=== PATIENT | male | born 1955 | race Caucasian/White ===

== ENCOUNTER 2017-02-07 13:29 | Emergency (ER) | payer BC ==
[2017-02-07 13:42] VITALS: PULSE 70
--- NOTE | 2017-02-07 14:52 | EDPHY ---
General Narrative: CHIEF COMPLAINT: Fall, knee laceration HISTORY OF PRESENT ILLNESS: Patient presents with complaints of left knee laceration. He was hiking at [facility] this morning when he tripped, landing on his left knee. He was wearing long pants but sustained a laceration underneath the pants. There was no tear to the pants. Minimal pain. He was able to hike out is. No numbness or tingling distally. 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 No change in the status. Minimal pain when ambulating. No pain at rest. Tetanus status is up-to-date less than 3 years. No other associated complaints or modifying factors. TIME OF INJURY: Less than 3 hours prior to arrival TETANUS STATUS: Less than 3 years ago MEDICAL/SURGICAL/SOCIAL HISTORY: Left lower extremity complications from polio REVIEW OF SYSTEMS: Ten systems reviewed and are negative unless otherwise noted in the HPI EXAMINATION General Appearance: Alert, no distress Head: normocephalic, atraumatic Cardiovascular: Pulses normal throughout. Symmetric DP and PT pulses 2+. Brisk cap refill Neurological: A&O, sensory symmetric, strength symmetric Skin: Warm and dry, no rash. For 5cm laceration of the left anterior knee over the patella. Neuro intact distally. Extremities: Tenderness of the left knee laceration. Full flexion extension of the left knee without deficit. No exposure of the patella or patellar tendon. Neuro intact distally. DIFFERENTIAL DIAGNOSES: Including but not limited to complex knee laceration, patellar fracture, MDM: 2:09 p.m. Mechanical fall with significant left knee laceration. Patellar tendon is intact. He does have some tenderness over the patella, thus I have ordered an x -ray. Tetanus up-to-date. The wound has been anesthetized. Proceed with x-ray , irrigation closure. No injury elsewhere. 3:20 p.m. X-rays negative for fracture, dislocation or foreign body. Laceration has been repaired with horizontal mattress with excellent approximation. He is neurovascular intact. We discussed daily wound care. We discussed light activity. We discussed returning to the ED for suture removal at 10-14 days. We also discussed ED precautions. He is comfortable this plan. He is ambulatory without assistance. Distal velasquez. PROCEDURE: Laceration repair Consent: Verbal Location: Left knee, prepatellar Length of repair: 5 cm Complexity: Complex Layer involvement: 2 layer Anesthesia: Local. 1% lidocaine with epinephrine. 7 mL Irrigation: Extensive Debridement: None Procedure description: Following good anesthesia, the wound was copiously irrigated. Wound bed was explored and there is no foreign body noted. No compromise of the fascia overlying the patellar tendon Wound borders were approximated well with good hemostasis. Tolerated well without complication. Suture/Staple material: Cutaneous layer: 4-0 Prolene, 8 horizontal mattresses. Subcutaneous layer: 5-0 Vicryl, 6 simple interrupted sutures Wound care: Routine as discussed Suture/Staple removal: 10-14 Days ED Precautions: Worsening pain. Erythema, edema, cyanosis, pallor, paresthesia or anesthesia. - History Smoking Status: Never smoked - Objective Vital Signs: Initial Vital Signs Temperature (C) 97.7 F 02/07/17 13:39 Heart Rate 70 02/07/17 13:39 Respiratory Rate 17 02/07/17 13:39 Blood Pressure 129/90 H 02/07/17 13:39 O2 Sat (%) 96 02/07/17 13:39 O2 Delivery Mode Room Air Allergies/Adverse Reactions: No Known Allergies Allergy (Verified 02/07/17 13:38) Home Medications: Medication Instructions Recorded Etanercept [Enbrel] 50 mg SQ WE@11/21/13 Methotrexate Sodium [Methotrexate] 10 mg PO WE@11/21/13 Aspirin [Aspirin 81mg (*)] 81 mg PO DAILY #0 tab 11/22/13 Cephalexin [Keflex (*)] 500 mg PO TID #30 cap 02/07/17 Departure - Departure Disposition: Home, Routine, Self-Care Clinical Impression: Laceration of knee, complicated Qualifiers: Encounter type: initial encounter Laterality: left Qualified Code(s): S81.012A - Laceration without foreign body, left knee, initial encounter Condition: Good Instructions: Care For Your Stitches (ED), Laceration (ED) Additional Instructions: 1. Daily wound care as discussed 2. Light activity as discussed 3. Return to ED in 10-14 days for suture removal 4. ED precautions as discussed Referrals: Michael Sabillon MD [Primary Care Provider] - As per Instructions Prescriptions: Cephalexin [Keflex (*)] 500 mg PO TID #30 cap
[2017-02-07 15:34] VITALS: BP 138/78; RESP 14; TEMP 97.2; O2SAT 97
== END 2017-02-07 15:34 | disposition home or self-care (01) ==
PROC: 0HQLXZZ Repair Left Lower Leg Skin, External Approach (ICD-10-PCS; principal; 2017-02-07)
DX: S81.012A Laceration without foreign body, left knee, initial encounter (principal); W01.0XXA Fall on same level from slipping, tripping and stumbling without subsequent striking against object, initial encounter; Y92.89 Other specified places as the place of occurrence of the external cause; Y99.8 Other external cause status; Y93.01 Activity, walking, marching and hiking

== ENCOUNTER → 2017-03-25 | Outpatient (CLI) | payer BC ==
[~2017-03-25] MED LIST: IOPAMIDOL (ISOVUE 370) 100 ML BTL IV ONE
== END ==
LOC: FIMAGING 07:43
PROVIDERS: ATTEND Internal Medicine Cardiovascular Disease
DX: J84.10 Pulmonary fibrosis, unspecified (principal)
CPT/HCPCS: Q9967

== ENCOUNTER 2017-03-26 10:40 | Day surgery (SDC) | payer BC ==
[2017-03-26] MEDS ORDERED: NS 1,000 ML IV ONE (10:43)
--- NOTE | 2017-03-26 11:10 | CPEKG ---
Heart Rate: 62 RR Interval: 968 P-R Interval: 184 QRSD Interval: 86 QT Interval: 412 QTC Interval: 419 P [place]: 60 QRS [place]: 33 T Wave [place]: 14 EKG Severity - NORMAL ECG - EKG Impression: SINUS RHYTHM Electronically Signed By: Tavo Pacheco 26-Mar-2017 14:41:14
== END 2017-03-26 11:33 | disposition home or self-care (01) ==
LOC: FCATH 10:40
PROVIDERS: ATTEND Internal Medicine Cardiovascular Disease
DX: I48.91 Unspecified atrial fibrillation (principal); Z53.9 Procedure and treatment not carried out, unspecified reason

== ENCOUNTER 2017-04-02 06:45 | Observation (INO) | payer BC ==
[2017-04-02] MEDS ORDERED: NS 1,000 ML IV ONE (06:49)
[2017-04-02 07:17] LABS: PLATELET COUNT 199 10^3/uL (150-400)
[2017-04-02 07:26] LABS: INR 0.98 (0.83-1.16); PROTIME(PATIENT) 13.2 SEC (12.0-15.0)
[2017-04-02] MEDS ORDERED: HEPARIN 10,000 UNIT/10 ML MDV (1,000 UNIT/ML) ONE (07:57)
[2017-04-02] MEDS ORDERED: LIDOCAINE 1% 300 MG/30 ML SDV ONE (07:57)
[2017-04-02] MEDS ORDERED: HEPARIN/DEXTROSE 25,000 UNIT/500 ML BAG ONE (07:57)
[2017-04-02] MEDS ORDERED: BUPIVACAINE 0.5% 30 ML SDV ONE (07:57)
[2017-04-02] MEDS ORDERED: ROCURONIUM 50 MG/5 ML VIAL ONE ×2 (08:08→10:11)
[2017-04-02] MEDS ORDERED: PROPOFOL 200 MG/20 ML VIAL ONE (08:08)
[2017-04-02] MEDS ORDERED: fentaNYL 100 MCG/2 ML INJ ONE (08:08)
[2017-04-02] MEDS ORDERED: PHENYLEPHRINE HCL 100 MCG/ML SYR ONE ×2 (08:11→11:31)
--- NOTE | 2017-04-02 09:03 | PDGENHP ---
History & Physical Chief Complaint: AFIB, symptomatic History of Present Illness: AFIB Relevant Physical Exam: s1s2 irreg. cta. aox3 Cardiorespiratory Assessment: Prior CB ablation 2 y ago. Recurrent symptomatic AFIB for ablation. D/w patient and that we will reisolate PV if necessary , perform AFL ablation if necessary, ablate other triggers
[2017-04-02] MEDS ORDERED: IOPAMIDOL (ISOVUE-300) 100 ML BTL ONE (09:18)
--- NOTE | 2017-04-02 09:29 | CPEKG ---
Heart Rate: 64 RR Interval: 938 QRSD Interval: 82 QT Interval: 388 QTC Interval: 401 QRS [place]: 38 T Wave [place]: 0 EKG Severity - ABNORMAL ECG - EKG Impression: ATRIAL FIBRILLATION, V-RATE 55-75 Electronically Signed By: Pako Ortiz 02-Apr-2017 12:38:56
[2017-04-02] MEDS ORDERED: MIDAZOLAM 2 MG/2 ML VIAL ONE (09:31)
[2017-04-02] MEDS ORDERED: ONDANSETRON 4 MG/2 ML VIAL ONE (11:48)
[2017-04-02] MEDS ORDERED: DEXAMETHASONE 4 MG/ML VIAL ONE ×2 (11:48)
[2017-04-02] MEDS ORDERED: SUGAMMADEX SODIUM 200 MG/2 ML VIAL IVP ONE (11:48)
--- NOTE | 2017-04-02 12:37 | EPPROC ---
Electrophysiology Procedure Note: ELECTROPHYSIOLOGIC STUDY AND CATHETER MEDIATED ABLATION FOR paroxysmal ATRIAL FIBRILLATION Procedures performed: 73629-21 EP evaluation with RA/RV/LA pace/record, with arrhythmia induction 15286-38 EP evaluation with RA/RV pace record, insert/reposition catheter, with arrhythmia induction 21334 Atrial fibrillation ablation 86763 3D mapping Intracardiac echocardiogram Fluoroscopy INDICATION: Paroxsymal atrial fibrillation Prior CB ablation in 2014 at our institution PROCEDURE: The patient arrived in the Electrophysiology Laboratory in the fasting state. The right groin, left groin and right infraclavicular area were prepped and draped in the usual sterile fashion. Anesthesiologist administered general anesthesia Dr. Jignesh Dickerson . All catheters were placed percutaneously using the Seldinger technique and advanced into position under fluoroscopic guidance. One #7 Angolan deflectable octapolar electrode catheter was placed in the His-bundle position via the left femoral vein (2mm spacing, IVC electrode for unipolar recordings). This catheter was placed in the coronary sinus after transseptal puncture. One #8 Angolan AcuNaV ultrasound catheter was placed in the left femoral vein and advanced into the right atrium. One #4 Angolan sheath was inserted into the left femoral artery via percutaneous technique and used for continuous arterial blood pressure monitoring and intermittent ACT determination. Programmed stimulation was performed from the right atrium, left atrium (CS) and right ventricle. There was no evidence of AV accessory pathway. Pt arrived to lab in AFIB, he converted to sinus rhythm with anesthesia induction. TOYA was attempted but probe could not be passed easily and therefore was not completed. Intracardiac echo evaluation of the left atrium and pulmonary veins was performed. Anatomy left common vein, RSPV, RIPV. Baseline ACT was drawn and heparin bolus was administered and heparin drip was started prior to transseptal puncture. ACT was checked every 15 minutes and maintained in the range of 350-400 seconds. One SL1 sheath was placed in the LA via a PFO. Pentaray and 3.5 mm STSF irrigated Carto ablation catheters were placed sequentially. A high-resolution electroanatomical map of the left atrium and pulmonary veins was obtained during sinus rhythm. CT angiography of the pulmonary veins and left atrium obtained previously was used in the CARTO-MERGE system for guidance in placing the catheter. Intracardiac ultrasound was used to assist in placing the mapping catheter outside the antrum of the pulmonary veins. An esophageal temperature probe (12 electrode, Circa) was placed by the anesthesiologist at the beginning of the procedure. Esophageal temperature was monitored continuously and RF ablation was interrupted if there was a temperature rise >0.5 C. The esophagus was closer to the LCV. The antrum of the left pulmonary veins was then isolated by radiofrequency applications (power 20-25 W). The antrum of the right pulmonary veins was then isolated by radiofrequency applications (power 20-25 W). Bidirectional ( entrance and exit) conduction block was confirmed. Ablation needed to be performed anterior to LCV, inferior to LCV and at LCV roof. Ablation needed to be performed anterior to RSPV and anterior to RIPV and 1 location posteriorly. Total ablation time 58 min 24 seconds. ICE imaging was consistent with pre ablation imaging; moreover it showed no pericardial effusion or LA/TAINA thrombus at the end of the procedure. The catheters were withdrawn. Protamine was given. Venous sheaths were removed in EP lab after pursestring suture was applied on both sides. Arterial sheath was left in place. The patient was recovered from anesthesia. There were no complications. CONCLUSIONS: 1. Paroxysmal atrial fibrillation. 2. Successful pulmonary vein re-isolation procedure (left and right pulmonary vein antrum) 3. No apparent complications. Patient Problems: Problems Problem Status Onset Atrial fibrillation Acute Chest pain Acute
--- NOTE | 2017-04-02 13:31 | CPEKG ---
Heart Rate: 64 RR Interval: 938 P-R Interval: 176 QRSD Interval: 84 QT Interval: 416 QTC Interval: 430 P [place]: 5 QRS [place]: 37 T Wave [place]: 1 EKG Severity - NORMAL ECG - EKG Impression: SINUS RHYTHM Electronically Signed By: Pako Ortiz 02-Apr-2017 15:00:21
[2017-04-02] MEDS: ENOXAPARIN 80 MG/0.8 ML SYR SC SCH (17:24)
[2017-04-03] MEDS: ENOXAPARIN 80 MG/0.8 ML SYR SC SCH (04:57)
[2017-04-03 05:09] LABS: PLATELET COUNT 205 10^3/uL (150-400)
[2017-04-03 05:40] LABS: CREATINE KINASE 145 IU/L (0-224)
--- NOTE | 2017-04-03 08:44 | CPEKG ---
Heart Rate: 77 RR Interval: 779 P-R Interval: 160 QRSD Interval: 82 QT Interval: 372 QTC Interval: 421 P [place]: 8 QRS [place]: 30 T Wave [place]: 8 EKG Severity - NORMAL ECG - EKG Impression: SINUS RHYTHM Electronically Signed By: Pako Ortiz 03-Apr-2017 08:51:45
--- NOTE | 2017-04-03 09:19 | ECHO ---
[email or web address] [address] [address] Main: [phone] Fax: Transthoracic Echocardiogram Name: HAY EDWARDS MR#: [id number] Study Date: 04/03/2017 Study Time: 07:42 AM Date of : 1955 Age: 61 year(s) Height: 182.9 cm (72 in.) Weight: 79.38 kg (175 lb.) BSA: 2.01 m2 Gender: Male Examination: Echo Indication: Post Ablation Image Quality: Contrast: Requested by: Pako Ortiz BP: 167 mmHg/97 mmHg Heart Rate: Rhythm: Indication: Post Ablation Procedure Staff Microelectronics Technician: Rob Martines Reading Physician: Pako Ortiz Requesting Provider: Conclusions: Normal size left ventricle. EF is 66 %. Normal RV function. Measurements: Chambers Valvular Assessment AV/MV Valvular Assessment TV/PV Normal Normal Normal Name Value Range Name Value Range Name Value Range Ao Nilda (MM): 3.2 cm (2.2 cm-3.7 AV Vmax: 1.07 m/s (1 m/s-1.7 PV Vmax: 0.81 m/s (0.6 m/s-0.9 cm) m/s) m/s) IVSd (2D): 0.9 cm (0.6 cm-1.1 AV maxP mmHg ( - ) PV PGmax: 3 mmHg ( - ) cm) LVOT Vmax: 0.88 m/s (0.7 m/s-1.1 LVDd (2D): 4.4 cm (4.2 cm-5.9 m/s) cm) MV E Vmax: 0.69 m/s ( - ) LVDs (2D): 2.8 cm (2.1 cm-4 MV A Vmax: 0.52 m/s ( - ) cm) MV E/A: 1.33 ( - ) LVPWd (2D): 1.0 cm (0.6 cm-1 cm) LVEF (2D): 66 (>=54 %) Continued Measurements: Chambers Valvular Assessment AV/MV Name Value Name Value LADs Lon.4 cm MV E' Septal: 0.09 m/s LA Area: 17.9 cm2 MV E/E' Septal: 7.70 LA Volume: 55 ml MV E/E' Lateral: 5.90 LA Volume Index: 27.4 ml/m2 Patient: HAY EDWARDS Study Date: 04/03/2017 Page 1 of 2 07:42 AM Findings: Left Ventricle: Normal size left ventricle. No LV hypertrophy. Normal global systolic LV function. EF is 66 %. No regional wall motion abnormality. Right Ventricle: Normal size right ventricle. Normal RV function. Left Atrium: The left atrium is normal in size. Right Atrium: The right atrium is normal in size. Mitral Valve: The mitral valve is normal in appearance and function. Aortic Valve: The aortic valve is tri-leaflet and functions normally. Tricuspid Valve: The tricuspid valve is normal in appearance and function. Pulmonic Valve: The pulmonic valve is normal in appearance and function. Aorta: The aorta is normal. Pericardium: No pericardial effusion. (No Signature Object) Patient: HAY EDWARDS Study Date: 04/03/2017 Page 2 of 2 07:42 AM D:_[id number]
--- NOTE | 2017-04-03 11:40 | ASMTCMCOM ---
CM Note CM Note Notes: Patient admitted for A-fib ablation, had a successful pulmonary vein re-isolation with Dr Ortiz yesterday. I anticipate discharge home with today; no discharge needs identified. Date Signed: 04/03/2017 11:39 AM Electronically Signed By:Anupama Caldwell RN
[2017-04-03 12:49] VITALS: BP 119/75; PULSE 82; RESP 16; TEMP 99.9; O2SAT 95
--- NOTE | 2017-04-03 14:14 | ASDISCHSUM ---
Discharge Information Plan Status:Home with No Needs Medically Cleared to Leave: Discharge Date:04/03/2017 01:14 PM CM D/C Disposition:Home, Routine, Self-Care ADT D/C Disposition:Home, Routine, Self-Care Projected Discharge Date:04/03/2017 01:14 PM Transportation at D/C:Family Discharge Delay Reason: Follow-Up Date:04/03/2017 01:14 PM Discharge Slot: Final Diagnosis: Placement Information Patient Contact Information Contact Name:SINDI Relationship: Address:[address] [place] [address] Work Phone: City:[place] Alternate Phone: [facility]/Zip Code:[place] [address] Email: Financial Information Financial Class:HMO and PPO Plans Primary Plan Desc: OUT OF STATE PPO Primary Plan Number:[id number] Secondary Plan Desc: Secondary Plan Number: Assessment Information [facility] CM Progress Note CM Note CM Note Notes: Patient admitted for A-fib ablation, had a successful pulmonary vein re-isolation with Dr Ortiz yesterday. I anticipate discharge home with today; no discharge needs identified. Date Signed: 04/03/2017 11:39 AM Electronically Signed By:Anupama Caldwell RN Intervention Information
--- NOTE | 2017-04-03 17:18 | GDS ---
[f rep st] DISCHARGE SUMMARY DISCHARGE DIAGNOSES: 1. Paroxysmal atrial fibrillation status post atrial fibrillation ablation. 2. Rheumatoid arthritis. 3. Post polio myelitis. 4. Patent foramen ovale. BRIEF HISTORY: This is a 61-year-old man who had undergone prior cryo balloon atrial fibrillation ab lation in [address] Ortiz. Symptoms after that improved at least 80%, but recently had started incre asing. Cardia tracings demonstrated atrial fibrillation up to 40 hours in length. HOSPITAL COURSE: Dr. Ortiz performed successful re isolation of pulmonary veins with RF ablation. Sep s[place] crossing was done via existing PFO. Overnight the patient has done well without any atrial fibri llation. He did have a slight oozing from his left groin site, however that resolved this morning. He denies any chest pain, pressure, tightness, or shortness of breath. Sutures were removed from rig ht and left groin site without problems. TESTING DONE: Echocardiogram demonstrates normal ejection fraction of 66%. No pericardial effusion and normal valve function. LAB WORK: WBC is 12.66, hemoglobin 14.1, hematocrit 40.5, platelets 205. Sodium is 141, potassium 4 .2, chloride 103, bicarb 29, BUN 14, creatinine 0.8, glucose 99, troponin is 1.550. CK is 145. CK f raction is 2.62. PHYSICAL EXAMINATION: VITAL SIGNS: Blood pressure is 123/75, pulse is 76, respirations 14, temperat ure 36.9, O2 saturation on room air is 96%. GENERAL: He is alert and oriented, in no acute distress . CARDIAC: Regular rate and rhythm without murmur, rub, or gallop. LUNGS: Clear to auscultation. ABDOMEN: Soft, nontender. Groin sites are with minimal ecchymosis. No hematomas and no bleeding. EXTREMITIES: Are warm. No discoloration. Bilateral +2 pedal pulses. DISCHARGE INSTRUCTIONS: Post ablation activity restrictions were reviewed with the patient and he wa s given written instructions at the time of discharge. He was also given an incentive spirometer to use every 3-4 hours for the next few days. DISCHARGE MEDICATIONS: Please see medication discharge reconciliation. Of note, he will restart his Eliquis this evening and plan to take that for 3 months post ablation. He will continue omeprazole for 6 weeks post ablation. FOLLOWUP: He has a followup scheduled with Dr. Ortiz on April 11 at 2:15. /[id number]/MODL
== END 2017-04-03 13:14 | disposition home or self-care (01) ==
LOC: FCATH 06:45 → F2N 12:23
PROVIDERS: ADMIT Internal Medicine Cardiovascular Disease; ATTEND Internal Medicine Cardiovascular Disease
DX: I48.0 Paroxysmal atrial fibrillation (principal); M06.9 Rheumatoid arthritis, unspecified; Q21.1 Atrial septal defect; Z86.12 Personal history of poliomyelitis
CPT/HCPCS: 93005; 93306; 93613; 93656; 93662; C1893; G0378; C1731; C1732; C1759; J1100; J1644; J1650; J2250; J2370; J2405; J2704; J3010; Q9967